=== PATIENT | male | born 1965 | race African-American/Black ===

== ENCOUNTER 2025-01-10 21:30 | Inpatient (IN) | payer OTHER ==
[~2025-01-10] VITALS: Ht 170.2 cm; Wt 70.8 kg
[2025-01-10 21:41] VITALS: O2SAT 96
[2025-01-10 22:55] LABS: HEMATOCRIT. 35.2 % (42.0-52.0); HEMOGLOBIN. 11.2 g/dL (14.0-18.0); MEAN PLATELET VOLUME 9.1 fl (7.4-10.4); PLATELET 100 x1000/uL (130-400); RED BLOOD CELL COUNT 4.04 mill/uL (4.7-6.1); RED CELL DISTRIBUTION WIDTH 21.6 % (11.6-14.6)
[2025-01-10 23:05] LABS: CREATININE 4.2 mg/dL (0.6-1.3)
[2025-01-10 23:06] LABS: UREA NITROGEN BLOOD 27 mg/dL (9-23)
[2025-01-10 23:07] LABS: ASPARTATE AMINOTRANSFERASE 18 IU/L (<34)
[2025-01-10 23:08] LABS: BILIRUBIN DIRECT 1.0 mg/dL (<=3.0); BILIRUBIN TOTAL 1.6 mg/dL (0.1-1.0); PROTEIN TOTAL 6.6 g/dL (6.0-8.3)
[2025-01-10 23:24] LABS: BAND% 3.0 % (1.0-6.0); EOSINOPHILS % MANUAL 2.0 % (0.0-5.0); LYMPHOCYTES % MANUAL 4.0 % (20.0-50.0); MONOCYTES % MANUAL 7.0 % (2.0-8.0); NEUTROPHILS % MANUAL 84.0 % (45.0-75.0); PLATELET ESTIMATE DECREASED
[2025-01-11] VITALS (7 sets, daily range): BP systolic 114–147; BP diastolic 56–75; PULSE 65–77; RESP 18–20; TEMP 36.4–36.9184; O2SAT 97–99
[2025-01-11] MEDS ORDERED: ACETAMINOPHEN 325MG TABLET PO PRN
[2025-01-11] MEDS ORDERED: HYDROCODONE/ACETAMINOPHEN 5/325MG TABLET PO PRN
[2025-01-11] MEDS ORDERED: ONDANSETRON HCL 4MG/2ML INJ IV PRN
[2025-01-11] MEDS ORDERED: MAGNESIUM/ALUMINUM HYDROXIDE/SIMETHICONE 30ML UDC PO PRN
[2025-01-11] MEDS ORDERED: DEXTROSE 50% WATER 50ML SYRINGE IV PRN
[2025-01-11] MEDS ORDERED: ZOLPIDEM TARTRATE 5MG TABLET PO PRN
[2025-01-11] MEDS ORDERED: CLONIDINE 0.1MG TABLET PO PRN
[2025-01-11] MEDS: ONDANSETRON HCL 4MG/2ML INJ IV ONE (00:11)
[2025-01-11] MEDS: DEXT 5%/0.45% NACL 1000ML 1,000 ML IV ONE (00:12)
[2025-01-11] MEDS: DEXT 5%/0.45% NACL 1000ML 1,000 ML IV SCH (01:40)
[2025-01-11] MEDS: BLOOD SUGAR DIAGNOSTIC STRIP TEST SCH (01:40)
[2025-01-11] MEDS: ENOXAPARIN 30MG/0.3ML SYR SUBCUT SCH (08:50)
[2025-01-11 09:04] LABS: CREATININE 4.8 mg/dL (0.6-1.3)
[2025-01-11 09:05] LABS: LDL CHOLESTEROL 16.0 mg/dL (5-100); TRIGLYCERIDE 72.0 mg/dL (0-150)
[2025-01-11 09:06] LABS: UREA NITROGEN BLOOD 31.0 mg/dL (9-23)
[2025-01-11 09:16] LABS: HEMATOCRIT. 32.8 % (42.0-52.0); HEMOGLOBIN. 10.6 g/dL (14.0-18.0); MEAN PLATELET VOLUME 9.6 fl (7.4-10.4); PLATELET 96 x1000/uL (130-400); RED BLOOD CELL COUNT 3.76 mill/uL (4.7-6.1); RED CELL DISTRIBUTION WIDTH 21.9 % (11.6-14.6)
[2025-01-11] MEDS: PANTOPRAZOLE SODIUM 40 MG/VIAL IV SCH (10:09)
[2025-01-11 14:28] LABS: BAND% 48.0 % (1.0-6.0); EOSINOPHILS % MANUAL 3.0 % (0.0-5.0); LYMPHOCYTES % MANUAL 10.0 % (20.0-50.0); MONOCYTES % MANUAL 4.0 % (2.0-8.0); NEUTROPHILS % MANUAL 35.0 % (45.0-75.0); PLATELET ESTIMATE SLIGHTLY DECREASED
[2025-01-12] VITALS: BP 135/70; PULSE 72; RESP 18; TEMP 36.6; O2SAT 95
[2025-01-12 04:00] VITALS: BP 149/75; PULSE 70; RESP 17; TEMP 36.4; O2SAT 99
[2025-01-12 07:49] LABS: HEMATOCRIT. 32.7 % (42.0-52.0); HEMOGLOBIN. 10.6 g/dL (14.0-18.0); MEAN PLATELET VOLUME 9.6 fl (7.4-10.4); PLATELET 94 x1000/uL (130-400); RED BLOOD CELL COUNT 3.78 mill/uL (4.7-6.1); RED CELL DISTRIBUTION WIDTH 22.0 % (11.6-14.6)
[2025-01-12 08:00] VITALS: BP 119/60; PULSE 68; RESP 18; TEMP 36.5; O2SAT 99
[2025-01-12 08:07] LABS: UREA NITROGEN BLOOD 43.0 mg/dL (9-23)
[2025-01-12 08:40] LABS: CREATININE 6.0 mg/dL (0.6-1.3)
[2025-01-12] MEDS ORDERED: HYDR-4001 PO (11:19)
[2025-01-12] MEDS ORDERED: [UNRECOGNIZED DRUG - OTHER] IV (11:19)
[2025-01-12 12:00] VITALS: BP 116/60; PULSE 70; RESP 18; TEMP 36.6; O2SAT 98
[2025-01-12 12:28] LABS: PHOSPHORUS 5.0 mg/dL (2.5-4.9)
[2025-01-12 16:00] VITALS: BP 134/71; PULSE 67; RESP 18; TEMP 36.2; O2SAT 97
[2025-01-12 16:00] LABS: HEPATITIS A AB IGM NEGATIVE (Negative); HEPATITIS B CORE AB IGM NEGATIVE (Negative)
[2025-01-12 16:01] LABS: HEPATITIS C AB NON REACTIVE (Neg) (Negative)
[2025-01-12 17:36] LABS: BAND% 19.0 % (1.0-6.0); LYMPHOCYTES % MANUAL 9.0 % (20.0-50.0); MONOCYTES % MANUAL 4.0 % (2.0-8.0); NEUTROPHILS % MANUAL 68.0 % (45.0-75.0); PLATELET ESTIMATE DECREASED
[2025-01-12 18:07] VITALS: BP 134/71; PULSE 67; RESP 18; TEMP 97.2
== END 2025-01-12 19:55 | disposition short-term general hospital (02) | DRG 637 ==
LOC: ER 21:30 → EDBEDREQTM 01-11 00:29 → EDBEDREQ 01-11 00:29 → ENRESERV 01-11 00:38 → 8WST 01-11 01:24
PROVIDERS: ADMIT Internal Medicine; ATTEND Internal Medicine
DX: E11.649 Type 2 diabetes mellitus with hypoglycemia without coma (principal); G92.8 Other toxic encephalopathy; I13.2 Hypertensive heart and chronic kidney disease with heart failure and with stage 5 chronic kidney disease, or end stage renal disease; N18.6 End stage renal disease; D64.9 Anemia, unspecified; D72.825 Bandemia; E11.22 Type 2 diabetes mellitus with diabetic chronic kidney disease; T73.0XXA Starvation, initial encounter; I50.9 Heart failure, unspecified; Z99.2 Dependence on renal dialysis; X58.XXXA Exposure to other specified factors, initial encounter
CPT/HCPCS: 36415; 80048; 80061; 80076; 82962; 83036; 83735; 84100; 84443; 85025; 86705; 86709; 87340; 93005; 93970; 99285; A4606; J1650; J2405; J2470